=== PATIENT | male | born 1970 | race Caucasian/White ===

== ENCOUNTER 2018-07-16 08:46 | Emergency (ER) | payer BC, SELFPAY ==
[2018-07-16 08:55] VITALS: BP 128/71; PULSE 75; RESP 16; TEMP 36.8; O2SAT 98
--- NOTE | 2018-07-16 09:08 | ED.GENADUL_ITS ---
Discharge Plan Disposition Patient Disposition: HOME Condition: Stable Discharge Details Chief Complaint: Headache Clinical Impression: Headache Primary Care Provider: Juli,Local ED Provider: Darlene Nguyen Home Meds and New Rx's Prescriptions: Continued Chantix Starting Month Box 0.5 mg (11)- 1 mg (42) Tablets,Dose Pack 1 PO PER PKG DIR RF: 0 No Action divalproex [Depakote] 250 mg tablet,delayed release (DR/EC) 250 mg PO BID Qty: 60 RF: 1 prochlorperazine maleate 5 mg tablet 5 mg PO Q8H PRN (Reason: headache, nausea) Qty: 30 RF: 1 Discharge Instructions Instructions: General Headache (ED) Additional Instructions: Please return immediately to the emergency department if you develop any new or worsening symptoms or if you become concerned. It is extremely important that you make an appointment to be seen soon as possible by your primary care doctor, and also by a neurologist. Referrals: Tara Garcia MD [ [facility] STAFF PHYSICIAN] - Discharge Data Discharge Date/Time-TO BE ENTERED AT DEPARTURE: 07/16/18 12:00 Medical Decision Making Dawit Stahl is a 48 y/o man with history of traumatic brain injury in the past presenting to the emergency department with 2 weeks of intermittent headache that occurs every day. On exam patient is well and nontoxic appearing. He is a benign neurologic exam. No meningismus. Exam/history is not consistent with subarachnoid hemorrhage, meningitis, central venous thrombosis, other acute emergent life-threatening process. Suspect migraine versus other benign headache. Plan for occipital nerve block. Occipital block performed without complication, patient tolerated procedure well. Patient reported headache 1 out of 10 15 minutes after occipital block. Plan for discharge to home with outpatient follow-up with PCP and neurology. I had a lengthy discussion with the patient regarding return to emergency department precautions, importance of outpatient follow-up, and home care. Patient was discharged home with a clear plan for outpatient follow-up. Patient verbalized understanding of the plan and was amenable. All questions were answered. HPI General Mode of arrival: ambulatory . Date/Time Provider Initiated Documentation: 07/16/18 09:07 . Limitations to Documentation: no limitations . Information obtained by: patient, RN notes reviewed and old records reviewed . HPI Narrative: Dawit Stahl is a 78-year-old man with history of traumatic brain injury several years ago presenting to emergency room with headache. Patient reports that he has a history of migraine headaches, though he does not typical ly see doctors in these. Patient reports that he has headaches usually once a month. Patient reports that he has had a headache for the past 2 weeks, although the pain has been intermittent and resolves for several hours each day. Patient reports that headache is bilateral, frontal, and also at the back of his head. He denies fever, visual changes, neck pain, back pain, vomiting. Headache was gradual in onset. Patient reports that he has had similar headaches in the past, although it he has not had headaches that occur every day for 2-week., Which is what prompted him to present to the emergency department. He does not have a neurologist. No recent illness, has been eating and drinking as usual. No recent travel. Related Data Home Medications Medication Instructions Recorded Confirmed Chantix Starting Month Box 1 PO PER PKG DIR 07/16/18 07/17/18 divalproex 250 mg tablet,delayed 250 mg PO BID #60 tab 07/17/18 07/17/18 release prochlorperazine maleate 5 mg 5 mg PO Q8H PRN #30 tab 07/17/18 07/17/18 tablet Previous Rx's Medication Instructions Recorded divalproex 250 mg tablet,delayed 250 mg PO BID #60 tab 07/17/18 release prochlorperazine maleate 5 mg 5 mg PO Q8H PRN #30 tab 07/17/18 tablet Allergies Allergy/AdvReac Type Severity Reaction Status Date / Time codeine AdvReac Nausea Unverified 07/17/18 08:48 General Stated Complaint: Headache LIAN: 2 Review of Systems Review of Systems Constitutional: denies fevers Eyes: denies eye pain ENT: denies facial pain, dental pain, sore throat Cardiovascular: denies chest pain Respiratory: denies SOB, cough GI: denies abdominal pain, vomiting, diarrhea : denies flank pain MSK: denies back pain, neck pain, arthralgias, myalgias Skin: denies rash Neuro: denies numbness, weakness, reports headaches PFS Medical History Arthritis (Chronic) Cervical stenosis of spine (Chronic) Chronic low back pain (Chronic) Insomnia (Chronic) Right eye injury (Chronic) Traumatic brain injury (Chronic) Social History Smoking/Tobacco Use Status: Current every day Alcohol Intake: current Alcohol Intake frequency: holidays/special occasions only Drug use: Never Substance use type: does not use Do you feel safe at home: Yes Do you feel safe in your relationship?: Yes Exam Narrative Exam Narrative: Constitutional: well and [id number], pleasant, conversing normally HENT: head atraumatic/normocephalic/normal inspection, mucous membranes moist Eyes: conjunctiva normal, sclera normal, pupils 3mm b/l equal and reactive to light and accommodation, extraocular movements intact Neck: no stridor, normal ROM, trachea midline, supple Chest: normal inspection Resp: normal work of breathing, LCTAB Cardio: normal rate, normal rhythm, no murmur appreciated Skin: warm, dry, normal color, no rash Neuro: alert, not altered, cranial nerves II through XII intact, motor 5 out of 5 throughout, normal tone Ext: no edema Psych: normal mood, normal affect, normal behavior Course Vital Signs Temperature 36.8 C 07/16/18 08:55 Pulse 75 07/16/18 08:55 Respiratory Rate 16 07/16/18 08:55 Blood Pressure 128/71 07/16/18 08:55 Pulse Oximetry 98 07/16/18 08:55 Temperature 36.8 C 07/16/18 08:55 Temperature Source Temporal Artery Scan 07/16/18 08:55 Pulse 75 07/16/18 08:55 Respiratory Rate 16 07/16/18 08:55 Respiratory Effort Non-Labored 07/16/18 08:59 Blood Pressure 128/71 07/16/18 08:55 Blood Pressure Position Sitting 07/16/18 08:55 Pulse Oximetry 98 07/16/18 08:55 Oxygen Delivery Method Room Air 07/16/18 08:55 Oxygen Flow Rate 0 07/16/18 08:55 Pain Level 4 07/16/18 09:02 Procedures Nerve Block Nerve Block 1: Time out performed: Yes Additional Comments: Procedure: Bilateral Greater occipital nerve blocks Indication: Headache Consent: Indication, risks, benefits, and alternatives discussed with the patient, which included bleeding, infection, permanent numbness, and medication reaction. Consent form signed and placed in chart. Time out: A timeout was performed Location: The greater occipital nerve was located by first palpating the mastoid and midline occipital ridge. Next the nerve was palpated at 2/3 the distance toward the occipital ridge. Medication: 50:50 mixture of 2% Lidocaine and 0.25% bupivacaine. Technique: The area was cleaned with 2 alcohol swabs while using clean gloves. Using a 5 cc syringe with a 25 amanda, 4cc of the medication mixture was injected in multiple tissue planes in the area around each greater occipital nerve. Prior to each injection the plunger was pulled to ensure the needle was not in a blood vessel. The patient tolerated the procedure well. Complications: none Blood loss: < 1cc
[2018-07-16] MEDS: Lidocaine 2% Pres-Free 5 ML VIAL IJ (11:41)
[2018-07-16] MEDS: Bupivacaine 0.25% Pres-Free 10 ML VIAL 2 ML IJ (11:41)
[2018-07-16 11:46] VITALS: BP 126/76; PULSE 76; RESP 16; TEMP 36.7; O2SAT 99
[2018-07-16 12:00] VITALS: BP 126/76; PULSE 76; RESP 16; TEMP 36.7; O2SAT 99
--- NOTE | 2018-07-16 12:12 | NUR.NOTE ---
Nursing Note: Faxed to Neurology a referral for follow up. Brittnee Humphrey.
== END 2018-07-16 12:00 | disposition home or self-care (01) ==
PROVIDERS: Emergency Provider Student in an Organized Health Care Education/Training Program
DX: R51 Headache (principal); Z87.820 Personal history of traumatic brain injury
CPT/HCPCS: 64405

== ENCOUNTER 2018-07-31 01:05 | Outpatient (CLI) | payer BC, SELFPAY ==
--- NOTE | 2018-07-31 14:32 | DI.MRI_ITS ---
SYMPTOMS/DIAGNOSIS: WORSENING HEADACHES, NEW BLURRED VISION, R51, H53.8 MRI OF THE BRAIN: T2 sagittal, T 1, T 2, FLAIR, diffusion and gradient echo axial sequences were performed. No intracranial hemorrhage, mass or infarct is seen. The ventricles are normal in size. The vascular flow voids appear intact. There are no abnormal areas of restricted diffusion. There are a few tiny high signal lesions in the white matter which are nonspecific and could be related to microvascular ischemia. There is mucosal thickening of the left maxillary as well as left sphenoid sinuses and a few ethmoid sinuses. There are no air fluid levels. The orbits are unremarkable. The pituitary is normal in size. IMPRESSION: Evidence of chronic sinus disease. No acute abnormality.
== END 2018-07-31 01:25 ==
PROVIDERS: PCP Physician Assistant; Visit Provider Nurse Practitioner Adult Health
DX: H53.8 Other visual disturbances (principal); R51 Headache; J32.9 Chronic sinusitis, unspecified
CPT/HCPCS: 70551